=== PATIENT | male | born 1970 ===

== ENCOUNTER 2020-03-18 10:51 | Outpatient (CLI) | payer OTHER ==
[~2020-03-18 10:51] MED LIST: DECADRON P4 MG/ML-1M IH; ORPH100T PO; TORADOL60 MG IM; [UNRECOGNIZED DRUG - OTHER] PO
== END 2020-03-18 10:58 | disposition home or self-care (01) ==
LOC: RAD 10:51
PROVIDERS: ATTEND General Practice
DX: M54.5 Low back pain (principal)